=== PATIENT | male | born 1955 | race Caucasian/White ===

== ENCOUNTER 2016-09-27 16:07 | Emergency (ER) | payer OTHER ==
[~2016-09-27] VITALS: Ht 177.8 cm; Wt 129.3 kg
[2016-09-27] MEDS ORDERED: KETOROLAC TROMETH 30 MG/ML 1ML VIAL IV ONE (21:45)
[2016-09-28 00:50] VITALS: BP 136/93
[2016-09-28] MEDS ORDERED: HYDROcodone-ACET 10/325MG TAB ONE (01:37)
[2016-09-28] MEDS ORDERED: HYDROcodone-ACET 10/325MG TAB PO ONE ×2 (01:45)
== END 2016-09-28 02:48 | disposition home or self-care (01) ==
LOC: ER 16:09
DX: M48.02 Spinal stenosis, cervical region (principal); I10 Essential (primary) hypertension; G89.29 Other chronic pain; M54.2 Cervicalgia; M54.9 Dorsalgia, unspecified; Z76.0 Encounter for issue of repeat prescription
CPT/HCPCS: 72125; 96374; 99284; J1885